=== PATIENT | female | born 2000 | race Caucasian/White ===

== ENCOUNTER 2019-07-13 13:39 | Emergency (ER) | payer MEDICAID ==
[~2019-07-13] VITALS: Ht 152.4 cm; Wt 59.0 kg
[2019-07-13 13:43] VITALS: Ht 152.4 cm; Wt 59.0 kg
[2019-07-13 15:47] VITALS: BP 120/66
== END 2019-07-13 15:47 | disposition home or self-care (01) ==
LOC: ED 13:39
DX: J06.9 Acute upper respiratory infection, unspecified (principal); H65.92 Unspecified nonsuppurative otitis media, left ear; Z98.890 Other specified postprocedural states

== ENCOUNTER 2019-08-02 18:33 | Emergency (ER) | payer MEDICAID ==
[~2019-08-02] VITALS: Ht 152.4 cm; Wt 60.3 kg
[2019-08-02 19:02] VITALS: Ht 152.4 cm; Wt 60.3 kg
[2019-08-02 21:20] VITALS: BP 127/81
== END 2019-08-02 21:20 | disposition home or self-care (01) ==
LOC: ED 18:33
DX: H57.89 Other specified disorders of eye and adnexa (principal); Z98.890 Other specified postprocedural states

== ENCOUNTER 2020-08-16 13:03 | Emergency (ER) | payer MEDICAID, SELFPAY ==
[~2020-08-16] VITALS: Ht 152.4 cm; Wt 56.7 kg
[2020-08-16 13:06] VITALS: BP 121/76; Ht 152.4 cm; Wt 56.7 kg
== END 2020-08-16 13:56 | disposition home or self-care (01) ==
LOC: ED 13:03
DX: R50.9 Fever, unspecified (principal); M79.10 Myalgia, unspecified site; Z20.828 Contact with and (suspected) exposure to other viral communicable diseases
CPT/HCPCS: U0003